=== PATIENT | female | born 1990 | race Caucasian/White ===

== ENCOUNTER 2022-09-27 23:01 | Emergency (ER) | payer SELFPAY ==
[2022-09-27 23:01] VITALS: BP 120/85; BP 125/98; PULSE 100; PULSE 110; RESP 16; TEMP 36.6; TEMP 36.7; O2SAT 96; O2SAT 98
[2022-09-28] VITALS (8 sets, daily range): BP systolic 115–134; BP diastolic 68–99; PULSE 82–110; RESP 16–19; TEMP 36.7; O2SAT 96–98; BMI 31.8
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
== END 2022-09-28 03:42 | disposition home or self-care (01) ==
LOC: ER 09-28 09:34
PROVIDERS: Emergency Provider Emergency Medicine
DX: S22.42XA Multiple fractures of ribs, left side, initial encounter for closed fracture (principal); F17.210 Nicotine dependence, cigarettes, uncomplicated; V86.95XA Unspecified occupant of 3- or 4- wheeled all-terrain vehicle (ATV) injured in nontraffic accident, initial encounter
CPT/HCPCS: 70450; 71045; 72125; 72128; 72131; 72170; 74177; 80053; 82962; 83690; 84703; 85025; 96374; 99284; 99285; Q9967